=== PATIENT | female | born 1980 | race Caucasian/White ===

== ENCOUNTER 2022-07-30 11:29 | Observation (INO) | payer SELFPAY ==
[~2022-07-30] VITALS: Ht 172.7 cm; Wt 52.6 kg
[2022-07-30] VITALS (24 sets, daily range): BP systolic 125–169; BP diastolic 82–111
[2022-07-30 11:52] LABS: BASO% 0.7 % (0-3); EOS% 0.3 % (0-8); HEMATOCRIT 30.3 % (37.0-47.0); IMMATURE GRANULOCYTES 0.2 % (0.0-5.0); LYMPH% 11.1 % (15-41); MEAN CELL VOLUME 68.4 fL CALC (80.0-100.0); MEAN CORPUSCULAR HGB 18.1 pG CALC (26.0-32.0); MEAN CORPUSCULAR HGB CONC 26.4 g/dL CAL (32.0-36.0); MONO% 4.5 % (2-13); NEUT# 7.34 thou/uL (2.00-7.15); NEUT% 83.2 % (42-76); RED BLOOD COUNT 4.43 mill/uL (4.20-5.60)
[2022-07-30 12:09] LABS: INTERNATIONAL NORMALIZED RATIO 0.9 RATIO (0.7-1.3); PROTHROMBIN TIME 9.2 SECONDS (9.0-12.5)
[2022-07-30 12:10] LABS: ALBUMIN 4.1 g/dL (3.2-5.0); ALKALINE PHOSPHATASE 116 u/l (38-126); ANION GAP 9 (6-22 (CALC)); BILIRUBIN, TOTAL 0.2 mg/dL (0.02-1.3); BUN 9 mg/dL (7-17); BUN/CREATININE RATIO 31 (12-20 (CALC)); CARBON DIOXIDE 29 mmol/l (22-30); CHLORIDE 100 mmol/l (95-108); CREATININE 0.3 mg/dL (0.5-1.0); GFR FOR AFR.AMER. > 60 ML/MIN (>=60 (CALC)); GFR OTHER RACES > 60 ML/MIN (>=60 (CALC)); POTASSIUM 3.9 mmol/l (3.5-5.1); SGOT/AST 45 u/l (14-36); SODIUM 134 mmol/l (137-146); TOTAL PROTEIN 6.8 g/dL (6.3-8.2)
[2022-07-30 13:20] LABS: URINE BLOOD DIPSTICK NEGATIVE (NEGATIVE); URINE COLOR YELLOW; URINE GLUCOSE - DIPSTICK >=1000 mg/dL (NEGATIVE); URINE KETONE TRACE mg/dL (NEGATIVE); URINE LEUK ESTERASE NEGATIVE (NEGATIVE); URINE PH 7.5 (4.5-8.0); URINE PROTEIN - DIPSTICK NEGATIVE (NEG-TRACE); URINE UROBILINOGEN - DIPSTICK 0.2 E.U./dL (0.2)
[2022-07-30 13:21] LABS: URINE NITRITE - DIPSTICK NEGATIVE (Negative)
[2022-07-30] MEDS ORDERED: METFORMIN500 M2 PO (18:46)
[2022-07-30] MEDS ORDERED: GLIPIZIDE5 M2 PO (18:46)
[2022-07-30] MEDS ORDERED: VALACYCLOVIR H500 M1 PO (18:48)
[2022-07-30] MEDS ORDERED: PROTONIX40 M2 PO (18:49)
[2022-07-31 12:09] LABS: URINE BILIRUBIN - DIPSTICK NEGATIVE (NEGATIVE)
== END 2022-07-30 20:25 | disposition left against medical advice (07) | DRG 72 ==
LOC: ED 11:29 → ED-I 13:36 → ED 14:00 → MS2 14:01
PROVIDERS: Family Medicine; ADMIT Internal Medicine; ATTEND Internal Medicine
DX: G93.41 Metabolic encephalopathy (principal); E11.9 Type 2 diabetes mellitus without complications; F31.9 Bipolar disorder, unspecified; F41.9 Anxiety disorder, unspecified; F20.9 Schizophrenia, unspecified; F10.21 Alcohol dependence, in remission
CPT/HCPCS: G0378; J1650; Q9967

== ENCOUNTER 2022-09-20 08:38 | Emergency (ER) | payer BC ==
[~2022-09-20] VITALS: Ht 172.7 cm; Wt 56.0 kg
[2022-09-20] VITALS (8 sets, daily range): BP systolic 126–185; BP diastolic 80–110
[~2022-09-20 08:38] MED LIST: GLIPIZIDE5 M2 PO; METFORMIN500 M2 PO; PROTONIX40 M2 PO; VALACYCLOVIR H500 M1 PO
[2022-09-20 09:15] LABS: BASO% 0.3 % (0-3); EOS% 0.2 % (0-8); HEMATOCRIT 33.7 % (37.0-47.0); IMMATURE GRANULOCYTES 0.3 % (0.0-5.0); LYMPH% 12.8 % (15-41); MEAN CELL VOLUME 69.6 fL CALC (80.0-100.0); MEAN CORPUSCULAR HGB 18.6 pG CALC (26.0-32.0); MEAN CORPUSCULAR HGB CONC 26.7 g/dL CAL (32.0-36.0); MONO% 3.4 % (2-13); NEUT# 7.91 thou/uL (2.00-7.15); RED BLOOD COUNT 4.84 mill/uL (4.20-5.60); RED CELL DISTRI WIDTH 20.7 % (11.5-15.5)
[2022-09-20 09:16] LABS: GFR FOR AFR.AMER. > 60 ML/MIN (>=60 (CALC)); GFR OTHER RACES > 60 ML/MIN (>=60 (CALC))
[2022-09-20 09:31] LABS: ALKALINE PHOSPHATASE 128 u/l (38-126); ANION GAP 19 (6-22 (CALC)); BILIRUBIN, TOTAL 0.2 mg/dL (0.02-1.3); BUN 10 mg/dL (7-17); BUN/CREATININE RATIO 23 (12-20 (CALC)); CARBON DIOXIDE 28 mmol/l (22-30); CHLORIDE 93 mmol/l (95-108); CREATININE 0.4 mg/dL (0.5-1.0); GFR FOR AFR.AMER. > 60 ML/MIN (>=60 (CALC)); GFR OTHER RACES > 60 ML/MIN (>=60 (CALC)); LIPASE < 10 u/l (23-300); POTASSIUM 4.1 mmol/l (3.5-5.1); SGOT/AST 42 u/l (14-36); SODIUM 136 mmol/l (137-146)
[2022-09-20 09:46] LABS: ALBUMIN 5.1 g/dL (3.2-5.0); TOTAL PROTEIN 8.2 g/dL (6.3-8.2)
[2022-09-20 10:21] LABS: URINE BILIRUBIN - DIPSTICK NEGATIVE (NEGATIVE); URINE BLOOD DIPSTICK NEGATIVE (NEGATIVE); URINE COLOR YELLOW; URINE GLUCOSE - DIPSTICK >=1000 mg/dL (NEGATIVE); URINE KETONE >=80 mg/dL (NEGATIVE); URINE LEUK ESTERASE NEGATIVE (NEGATIVE); URINE PROTEIN - DIPSTICK NEGATIVE (NEG-TRACE); URINE UROBILINOGEN - DIPSTICK 0.2 E.U./dL (0.2)
[2022-09-20 10:22] LABS: URINE NITRITE - DIPSTICK NEGATIVE (Negative)
[2022-09-20] MEDS ORDERED: ZOFRAN4 MG/TAB PO (12:07)
[2022-09-20] MEDS ORDERED: MIRALAX17 GM PO (12:09)
== END 2022-09-20 12:36 | disposition home or self-care (01) | DRG 392 ==
LOC: ED 08:38
PROVIDERS: Family Medicine
DX: K59.00 Constipation, unspecified (principal); F41.9 Anxiety disorder, unspecified; F32.A Depression, unspecified; F17.200 Nicotine dependence, unspecified, uncomplicated
CPT/HCPCS: Q9967

== ENCOUNTER 2022-10-02 12:58 | Inpatient (IN) | payer BC ==
[~2022-10-02] VITALS: Ht 172.7 cm; Wt 49.0 kg
[2022-10-02] VITALS (20 sets, daily range): BP systolic 127–171; BP diastolic 75–129
[~2022-10-02 12:58] MED LIST changes: +MIRALAX17 GM PO; +ZOFRAN4 MG/TAB PO
[2022-10-02 14:19] LABS: BASO% 0.3 % (0-3); EOS% 0.2 % (0-8); HEMATOCRIT 34.5 % (37.0-47.0); HEMOGLOBIN 9.1 g/dl (12.0-16.0); IMMATURE GRANULOCYTES 1.4 % (0.0-5.0); LYMPH% 10.9 % (15-41); MEAN CELL VOLUME 71.9 fL CALC (80.0-100.0); MEAN CORPUSCULAR HGB CONC 26.4 g/dL CAL (32.0-36.0); MONO% 4.3 % (2-13); NEUT# 9.49 thou/uL (2.00-7.15); NEUT% 82.9 % (42-76); RED BLOOD COUNT 4.8 mill/uL (4.20-5.60); RED CELL DISTRI WIDTH 21.1 % (11.5-15.5)
[2022-10-02 14:36] LABS: ALKALINE PHOSPHATASE 97 u/l (38-126); BUN 12 mg/dL (7-17); BUN/CREATININE RATIO 20 (12-20 (CALC)); CHLORIDE 104 mmol/l (95-108); CREATININE 0.6 mg/dL (0.5-1.0); GFR FOR AFR.AMER. > 60 ML/MIN (>=60 (CALC)); GFR OTHER RACES > 60 ML/MIN (>=60 (CALC)); SGOT/AST 21 u/l (14-36); SODIUM 132 mmol/l (137-146)
[2022-10-02 14:43] LABS: URINE BILIRUBIN - DIPSTICK NEGATIVE (NEGATIVE); URINE BLOOD DIPSTICK NEGATIVE (NEGATIVE); URINE COLOR YELLOW; URINE GLUCOSE - DIPSTICK 500 mg/dL (NEGATIVE); URINE KETONE >=80 mg/dL (NEGATIVE); URINE LEUK ESTERASE NEGATIVE (NEGATIVE); URINE NITRITE - DIPSTICK NEGATIVE (Negative); URINE PROTEIN - DIPSTICK NEGATIVE (NEG-TRACE); URINE SPECIFIC GRAVITY 1.025; URINE UROBILINOGEN - DIPSTICK 0.2 E.U./dL (0.2)
[2022-10-02 14:44] LABS: ALBUMIN 3.9 g/dL (3.2-5.0); ANION GAP 25 (6-22 (CALC)); BILIRUBIN, TOTAL 0.4 mg/dL (0.02-1.3); TOTAL PROTEIN 6.2 g/dL (6.3-8.2)
[2022-10-02 14:46] LABS: CARBON DIOXIDE 7 mmol/l (22-30)
[2022-10-02 15:09] LABS: LIPASE 229 u/l (23-300)
[2022-10-02] MEDS ORDERED: ZENPEP (15:28)
[2022-10-02 18:08] LABS: BUN 10 mg/dL (7-17); BUN/CREATININE RATIO 23 (12-20 (CALC)); CHLORIDE 110 mmol/l (95-108); CREATININE 0.4 mg/dL (0.5-1.0); GFR FOR AFR.AMER. > 60 ML/MIN (>=60 (CALC)); GFR OTHER RACES > 60 ML/MIN (>=60 (CALC)); SODIUM 134 mmol/l (137-146)
[2022-10-02 18:10] LABS: ANION GAP 16 (6-22 (CALC)); CARBON DIOXIDE 11 mmol/l (22-30); POTASSIUM 3.1 mmol/l (3.5-5.1)
[2022-10-02 21:50] LABS: ANION GAP 13 (6-22 (CALC)); BUN 8 mg/dL (7-17); BUN/CREATININE RATIO 24 (12-20 (CALC)); CARBON DIOXIDE 14 mmol/l (22-30); CHLORIDE 110 mmol/l (95-108); CREATININE 0.3 mg/dL (0.5-1.0); GFR FOR AFR.AMER. > 60 ML/MIN (>=60 (CALC)); GFR OTHER RACES > 60 ML/MIN (>=60 (CALC)); POTASSIUM 3.1 mmol/l (3.5-5.1); SODIUM 134 mmol/l (137-146)
[2022-10-03] VITALS (31 sets, daily range): BP systolic 122–175; BP diastolic 75–110
[2022-10-03 01:42] LABS: ANION GAP 10 (6-22 (CALC)); BUN 7 mg/dL (7-17); BUN/CREATININE RATIO 25 (12-20 (CALC)); CARBON DIOXIDE 16 mmol/l (22-30); CHLORIDE 112 mmol/l (95-108); CREATININE 0.3 mg/dL (0.5-1.0); GFR FOR AFR.AMER. > 60 ML/MIN (>=60 (CALC)); GFR OTHER RACES > 60 ML/MIN (>=60 (CALC)); POTASSIUM 3.2 mmol/l (3.5-5.1); SODIUM 135 mmol/l (137-146)
[2022-10-03 06:25] LABS: HEMATOCRIT 33.5 % (37.0-47.0); MEAN CELL VOLUME 71.7 fL CALC (80.0-100.0); MEAN CORPUSCULAR HGB 19.3 pG CALC (26.0-32.0); MEAN CORPUSCULAR HGB CONC 26.9 g/dL CAL (32.0-36.0); RED BLOOD COUNT 4.67 mill/uL (4.20-5.60); RED CELL DISTRI WIDTH 21.6 % (11.5-15.5)
[2022-10-03 06:39] LABS: ALKALINE PHOSPHATASE 76 u/l (38-126); BILIRUBIN, TOTAL 0.3 mg/dL (0.02-1.3); BUN 6 mg/dL (7-17); BUN/CREATININE RATIO 23 (12-20 (CALC)); CHLORIDE 110 mmol/l (95-108); CREATININE 0.3 mg/dL (0.5-1.0); GFR FOR AFR.AMER. > 60 ML/MIN (>=60 (CALC)); GFR OTHER RACES > 60 ML/MIN (>=60 (CALC)); MAGNESIUM 1.5 mg/dL (1.6-2.3); SGOT/AST 20 u/l (14-36); SODIUM 133 mmol/l (137-146)
[2022-10-03 06:43] LABS: ALBUMIN 2.9 g/dL (3.2-5.0); ANION GAP 15 (6-22 (CALC)); CARBON DIOXIDE 12 mmol/l (22-30); POTASSIUM 3.9 mmol/l (3.5-5.1)
[2022-10-03 10:50] LABS: BUN 5 mg/dL (7-17); BUN/CREATININE RATIO 13 (12-20 (CALC)); CHLORIDE 105 mmol/l (95-108); CREATININE 0.4 mg/dL (0.5-1.0); GFR FOR AFR.AMER. > 60 ML/MIN (>=60 (CALC)); GFR OTHER RACES > 60 ML/MIN (>=60 (CALC)); POTASSIUM 4.3 mmol/l (3.5-5.1); SODIUM 132 mmol/l (137-146)
[2022-10-03 11:05] LABS: ANION GAP 22 (6-22 (CALC)); CARBON DIOXIDE 9 mmol/l (22-30)
[2022-10-03 22:12] LABS: ANION GAP 11 (6-22 (CALC)); BUN 6 mg/dL (7-17); BUN/CREATININE RATIO 15 (12-20 (CALC)); CARBON DIOXIDE 19 mmol/l (22-30); CHLORIDE 104 mmol/l (95-108); CREATININE 0.4 mg/dL (0.5-1.0); GFR FOR AFR.AMER. > 60 ML/MIN (>=60 (CALC)); GFR OTHER RACES > 60 ML/MIN (>=60 (CALC)); POTASSIUM 3.6 mmol/l (3.5-5.1); SODIUM 130 mmol/l (137-146)
[2022-10-04] VITALS (14 sets, daily range): BP systolic 117–144; BP diastolic 75–96
[2022-10-04 05:58] LABS: HEMATOCRIT 33.6 % (37.0-47.0); MEAN CELL VOLUME 71.3 fL CALC (80.0-100.0); MEAN CORPUSCULAR HGB 19.1 pG CALC (26.0-32.0); MEAN CORPUSCULAR HGB CONC 26.8 g/dL CAL (32.0-36.0); RED BLOOD COUNT 4.71 mill/uL (4.20-5.60)
[2022-10-04 06:19] LABS: ALBUMIN 3.2 g/dL (3.2-5.0); ALKALINE PHOSPHATASE 71 u/l (38-126); ANION GAP 8 (6-22 (CALC)); BILIRUBIN, TOTAL 0.3 mg/dL (0.02-1.3); BUN 5 mg/dL (7-17); BUN/CREATININE RATIO 17 (12-20 (CALC)); CARBON DIOXIDE 23 mmol/l (22-30); CHLORIDE 108 mmol/l (95-108); CREATININE 0.3 mg/dL (0.5-1.0); GFR FOR AFR.AMER. > 60 ML/MIN (>=60 (CALC)); GFR OTHER RACES > 60 ML/MIN (>=60 (CALC)); POTASSIUM 3.6 mmol/l (3.5-5.1); SGOT/AST 31 u/l (14-36); SODIUM 135 mmol/l (137-146); TOTAL PROTEIN 5.6 g/dL (6.3-8.2)
[2022-10-04] MEDS ORDERED: LORTAB5 PO (09:24)
[2022-10-04] MEDS ORDERED: LOSARTAN POTASS25 MG PO (09:24)
[2022-10-04] MEDS ORDERED: PANTOPRAZOLE SO40 M1 PO (09:24)
[2022-10-04] MEDS ORDERED: LANTUS SOL100 UNIT/M SC (09:24)
[2022-10-04] MEDS ORDERED: CREON12000 UNT PO (09:24)
[2022-10-04] MEDS ORDERED: ZOFRAN4 MG/TAB PO (09:25)
== END 2022-10-04 12:55 | DRG 638 ==
LOC: ED 12:58 → ICU 16:52
PROVIDERS: Family Medicine; ADMIT Internal Medicine; ATTEND Internal Medicine
DX: E11.10 Type 2 diabetes mellitus with ketoacidosis without coma (principal); K86.1 Other chronic pancreatitis; R45.851 Suicidal ideations; F32.9 Major depressive disorder, single episode, unspecified; I10 Essential (primary) hypertension; D53.9 Nutritional anemia, unspecified; F41.9 Anxiety disorder, unspecified; F17.210 Nicotine dependence, cigarettes, uncomplicated; T38.3X6A Underdosing of insulin and oral hypoglycemic [antidiabetic] drugs, initial encounter; Z91.120 Patient's intentional underdosing of medication regimen due to financial hardship; Z79.84 Long term (current) use of oral hypoglycemic drugs; Z59.1 Inadequate housing; Z91.410 Personal history of adult physical and sexual abuse; Z91.51 Personal history of suicidal behavior
CPT/HCPCS: J1756; J3475; Q9967